=== PATIENT | male | born 1995 | race Caucasian/White ===

== ENCOUNTER 2021-06-04 12:44 | Emergency (ER) | payer OTHER ==
--- NOTE | 2021-06-04 13:26 | EDM.PDOC ---
ED HPI GENERAL MEDICAL PROBLEM - General Chief Complaint: Eye Problems Stated Complaint: CHEMICAL IN RIGHT EYE Time Seen by Provider: 06/04/21 12:50 Source of Information: Reports: Patient History Limitations: Reports: No Limitations - History of Present Illness INITIAL COMMENTS - FREE TEXT/NARRATIVE: 26-year-old male is concerned about his right eye after possibly getting a small amount of thermal glue in the corner of his eye last night. He is already being treated for some bleach exposure in the eye and he just wants to make sure it is okay. He really does not have any symptoms. Onset: Unknown/Unsure Associated Symptoms: Reports: No Other Symptoms - Related Data Allergies Allergy/AdvReac Type Severity Reaction Status Date / Time No Known Allergies Allergy Verified 06/04/21 13:17 Home Meds: Home Meds NK [No Known Home Meds] 06/04/21 [History] Past Medical History - Past Health History Medical/Surgical History: Denies Medical/Surgical History Social & Family History - Tobacco Use Tobacco Use Status *Q: Never Tobacco User - Caffeine Use Caffeine Use: Reports: Coffee - Alcohol Use Days Per Week of Alcohol Use: 3 Number of Drinks Per Day: 2 Total Drinks Per Week: 6 - Recreational Drug Use Recreational Drug Use: No ED ROS GENERAL - Review of Systems Review Of Systems: See Below Constitutional: Denies: Fever, Chills Respiratory: Denies: Shortness of Breath Cardiovascular: Denies: Chest Pain GI/Abdominal: Denies: Nausea, Vomiting Neurological: Reports: No Symptoms. Denies: Headache ED EXAM GENERAL W FULL EYE - Physical Exam Exam: See Below Exam Limited By: No Limitations General Appearance: Alert, No Apparent Distress Eye Exam: Bilateral Eye: EOMI, Normal Inspection, PERRL Eyelids: Bilateral: Normal Appearance Conjunctiva & Sclera: Right: Normal Appearance Cornea Exam: Right: Normal Appearance Head: Atraumatic Respiratory/Chest: No Respiratory Distress Course - Vital Signs Last Recorded V/S: Last Vital Signs Temp 98.0 F 06/04/21 13:16 Pulse 55 L 06/04/21 13:16 Resp 16 06/04/21 13:16 BP 119/73 06/04/21 13:16 Pulse Ox 98 06/04/21 13:16 - Re-Assessments/Exams Free Text/Narrative Re-Assessment/Exam: 06/04/21 13:24 Close exam of the cornea and epicanthus area with the ophthalmoscope showed no abnormalities, erythema, drainage or irritation. I really do not have any reason to examine with fluorescein stain or slit lamp since he has no symptoms or outward evidence of damage 12 hours after his possible exposure. Patient can follow-up with optometry as scheduled. Departure - Departure Time of Disposition: 13:39 Disposition: Home, Self-Care 01 Clinical Impression: Chemical injury of eye Qualifiers: Encounter type: initial encounter Laterality: right Qualified Code(s): T26.91XA - Corrosion of right eye and adnexa, part unspecified, initial encounter - Discharge Information Instructions: Chemical Burn of the Eyes, Adult Referrals: PCP,None [Primary Care Provider] - Forms: ED Department Discharge Care Plan Goals: Avoid exposure applied to further chemicals, and follow-up with your senior quality engineer as scheduled. Return anytime sooner if you develop pain, visual complaints or other concerns. Sepsis Event Note (ED) - Evaluation Sepsis Screening Result: No Definite Risk - Focused Exam Vital Signs: Vital Signs Temp Pulse Resp BP Pulse Ox 06/04/21 13:16 98.0 F 55 L 16 119/73 98 06/04/21 13:07 98.0 F 55 L 16 119/73 98
== END 2021-06-04 13:39 | disposition home or self-care (01) ==
LOC: JP.ED 12:44
DX: Z77.22 Contact with and (suspected) exposure to environmental tobacco smoke (acute) (chronic) (principal)
CPT/HCPCS: 99283

== ENCOUNTER 2021-10-12 13:49 | Emergency (ER) | payer OTHER ==
--- NOTE | 2021-10-12 14:21 | EDM.PDOC ---
ED HPI GENERAL MEDICAL PROBLEM - General Chief Complaint: General Stated Complaint: RECTAL PAIN AND BLEEDING OFF AND ON Time Seen by Provider: 10/12/21 14:05 Source of Information: Reports: Patient, RN History Limitations: Reports: No Limitations - History of Present Illness INITIAL COMMENTS - FREE TEXT/NARRATIVE: 26 yo male is trying to enlist in the and they are holding up his admission until he can get medically cleared. On a medical record from there was a mention of blood in his stool that was apparently not explained. They want this re-visited Onset: Unknown/Unsure (about 3 yrs ago, one time occurrence) Duration: Other (once) Location: Reports: Other (rectal) Quality: Reports: Other (no pain) Severity: Mild Improves with: Reports: Other (? 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: Reports: Other (see below) (none) - Related Data Allergies Allergy/AdvReac Type Severity Reaction Status Date / Time No Known Allergies Allergy Verified 10/12/21 14:06 Home Meds: Home Meds NK [No Known Home Meds] 06/04/21 [History] Past Medical History - Past Health History Medical/Surgical History: Denies Medical/Surgical History Social & Family History - Tobacco Use Tobacco Use Status *Q: Never Tobacco User - Caffeine Use Caffeine Use: Reports: Coffee - Recreational Drug Use Recreational Drug Use: No ED ROS GENERAL - Review of Systems Review Of Systems: See Below Constitutional: Reports: No Symptoms HEENT: Reports: No Symptoms Respiratory: Reports: No Symptoms Cardiovascular: Reports: No Symptoms GI/Abdominal: Reports: Abdominal Pain, Hematochezia (once ~ 3 yrs ago). Denies: Melena : Reports: No Symptoms Musculoskeletal: Reports: No Symptoms Skin: Reports: No Symptoms Neurological: Reports: No Symptoms ED EXAM, GENERAL - Physical Exam Exam: See Below Exam Limited By: No Limitations General Appearance: Alert, WD/WN, No Apparent Distress Eye Exam: Bilateral Eye: Normal Inspection, Other (no conjunctival pallor) Ears: Normal External Exam, Normal Canal, Hearing Grossly Normal Ear Exam: Bilateral Ear: Auricle Normal, Canal Normal Nose: Normal Inspection, No Blood Throat/Mouth: Normal Inspection, Normal Lips, Normal Voice Head: Atraumatic Neck: Normal Inspection Respiratory/Chest: No Respiratory Distress, No Accessory Muscle Use Rectal (Males) Exam: Normal Exam, Normal Rectal Tone. No: Fecal Impaction, Hemorrhoids, Rectal Fissure, Tenderness Extremities: Normal Inspection Neurological: Alert, Oriented, CN II-XII Intact, Normal Cognition, No Motor/Sensory Deficits Psychiatric: Normal Affect, Normal Mood Skin Exam: Warm, Dry, Intact, Normal Color, No Rash Course - Vital Signs Last Recorded V/S: Last Vital Signs Temp 36.3 C 10/12/21 14:05 Pulse 81 10/12/21 14:05 Resp 16 10/12/21 14:05 BP 129/67 10/12/21 14:05 Pulse Ox 99 10/12/21 14:05 - Orders/Labs/Meds Orders: Active Orders 24 hr Category Date Time Status Hemoccult [OCCULT BLOOD DIAGNOSTIC] [OP] Stat Lab 10/12/21 14:46 Ordered Departure - Departure Time of Disposition: 14:54 Disposition: Home, Self-Care 01 Condition: Good Clinical Impression: Normal rectal exam - Discharge Information *PRESCRIPTION DRUG MONITORING PROGRAM REVIEWED*: Not Applicable *COPY OF PRESCRIPTION DRUG MONITORING REPORT IN PATIENT WISAM: Not Applicable Referrals: PCP,None [Primary Care Provider] - Forms: ED Department Discharge Additional Instructions: Recheck as needed. Your exam today revealed no problems. There was no blood in your stool and no pathology per exam. Sepsis Event Note (ED) - Evaluation Sepsis Screening Result: No Definite Risk - Focused Exam Vital Signs: Vital Signs Temp Pulse Resp BP Pulse Ox 10/12/21 14:05 36.3 C 81 16 129/67 99 - My Orders Last 24 Hours: My Active Orders 10/12/21 14:46 Hemoccult [OCCULT BLOOD DIAGNOSTIC] [OP] Stat - Assessment/Plan Last 24 Hours: My Active Orders 10/12/21 14:46 Hemoccult [OCCULT BLOOD DIAGNOSTIC] [OP] Stat
== END 2021-10-12 15:16 | disposition home or self-care (01) ==
LOC: JP.ED 13:49
DX: Z00.8 Encounter for other general examination (principal)
CPT/HCPCS: 82272; 99283